=== PATIENT | female | born 1990 | race Caucasian/White ===

== ENCOUNTER 2017-06-28 08:50 | Emergency (ER) | payer OTHER ==
[2017-06-28 08:55] VITALS: BMI 22.9
--- NOTE | 2017-06-28 09:17 | PDOC ---
History of Present Illness - General Chief Complaint: Pain, Acute Stated Complaint: DIARRHEA, VOMITING Time Seen by Provider: 06/28/17 09:01 - History of Present Illness Initial Comments: 06/28/17 09:23 Patient is a 27 y.o. female with a PMH of pericarditis (likely viral) who presents to our ED today c/o 1 day h/o of nausea, 6 episodes of non-bloody emesis, multiple episodes of non-watery diarrhea as well as R sided flank pain that radiates to her RLQ. Patient denies any associated fevers/chills but does c/o generalized malaise. Patient notes her children ages 11 months and 4 years old have recent h/o RSV for which they both received antibiotic therapy. Allergies: Sulfa Surgical: none Social: denies cigarettes, (+) alcohol 3-4 drinks monthly, denies recreational drugs PMD: Dr. Stevie To Past History - Past Medical History Allergies/Adverse Reactions: Allergies Allergy/AdvReac Type Severity Reaction Status Date / Time trimethoprim [From Bactrim] Allergy Severe Rash Verified 06/28/17 08:51 Sulfa (Sulfonamide Allergy Intermediate Rash Verified 06/28/17 08:51 Antibiotics) sulfamethoxazole Allergy Verified 06/28/17 08:51 [From Bactrim] Home Medications: Ambulatory Orders NK [No Known Home Medication] 06/28/17 Anemia: Yes Asthma: No Cancer: No Cardiac Disorders: Yes (PERICARDITIS) CVA: Yes (heart murmur) COPD: No Diabetes: No HTN: No Seizures: No Thyroid Disease: No - Surgical History Cholecystectomy: Yes - Reproductive History (#): 1 Cervical CA: No Dysfunctional Uterine Bleeding: No Ectopic : No Endometrial CA: No Polycystic Ovaries: No Tubal Ligation: No - Immunization History Immunization Up to Date: Yes - Suicide/Smoking/Psychosocial Hx Smoking Status: No Smoking History: Never smoked Have you smoked in the past 12 months: No Number of Cigarettes Smoked Daily: 0 Hx Alcohol Use: No Drug/Substance Use Hx: No Substance Use Type: None Hx Substance Use Treatment: No Review of Systems - Review of Systems Constitutional: Yes: Malaise. No: Chills, Fever, Unexplained wgt Loss Respiratory: No: Shortness of Breath Cardiac (ROS): No: Chest Pain ABD/GI: Yes: Diarrhea, Nausea, Vomiting. No: Constipated : No: Burning, Dysuria Musculoskeletal: Yes: Back Pain All Other Systems: Reviewed and Negative *Physical Exam - Vital Signs Last Vital Signs Temp Pulse Resp BP Pulse Ox 98.5 F 84 19 119/86 98 06/28/17 08:52 06/28/17 08:52 06/28/17 08:52 06/28/17 08:52 06/28/17 08:52 - Physical Exam General Appearance: Yes: Nourished, Thin Neck: positive: Trachea midline, Supple Respiratory/Chest: positive: Lungs Clear. negative: Labored Respiration, Rapid RR Cardiovascular: positive: S1, S2 Gastrointestinal/Abdominal: positive: Tender (Epigastric and LLQ tenderness on deep palpation), Flat, Soft Musculoskeletal: positive: CVA Tenderness (R). negative: CVA Tenderness (L) Extremity: positive: Normal Capillary Refill, Normal Inspection Integumentary: positive: Normal Color, Dry, Warm Neurologic: positive: Fully Oriented, Alert ED Treatment Course - LABORATORY CBC & Chemistry Diagram: 06/28/17 09:00 06/28/17 09:00 Medical Decision Making - Medical Decision Making 06/28/17 10:30 Patient is a 27 y.o. female who presents with N/V/D. On PE patient is hemodynamically stable, benign cardiac exam (no rub) has minimal R CVA tenderness. Low clinical suspicion for nephrolithiasis given patient's non- colicky pain/PE. PLAN: 1. CBC, CMP 2. UA/Urine 3. EKG - past h/o pericarditis Reassess 06/28/17 14:13 EKG shows NSR HR 82 bpm with no deviations, normal intervals, no ST segment changes, no T wave flattening. Moreover no ST elevation w/reciprocal NH depression --> no concerning changes for repeat pericarditis. UA nitrite (-), micro pending. As patient atient's pain resolved with Motrin less likely nephrolithiasis. Patient discharged home with symptomatic care, return precautions and instruction to f/u with PCP. *DC/Admit/Observation/Transfer Diagnosis at time of Disposition: Viral gastritis - Discharge Dispostion Disposition: HOME Condition at time of disposition: Good Admit: No - Referrals Referrals: Stevie To MD [Primary Care Provider] - - Patient Instructions Printed Discharge Instructions: DI for Gastritis Additional Instructions: Please use over the counter Maalox for symptomatic relief. Please follow-up with your primary care doctor in the next 1 week. Please return to the Emergency Department for any new worsening or concerning symptoms including persistent diarrhea, vomiting, chest pain or shortness of breath. - Post Discharge Activity Forms/Work/School Notes: Back to Work
[2017-06-28] MEDS ORDERED: SODIUM CHLORIDE 0.9% 1000 ML INFUS.BAG IV ONE (09:18)
--- NOTE | 2017-06-28 09:36 | PDOC ---
Attending Attestation - Resident Resident Name: Jazzy Nova - ED Attending Attestation I have performed the following: I have examined & evaluated the patient, The case was reviewed & discussed with the resident, I agree w/resident's findings & plan, Exceptions are as noted - HPI HPI: 06/28/17 09:33 27 F with no PMH presents to ER with 2 days of R flank pain, vomiting, and diarrhea. She reports that she started to feel ill a week ago, with runny nose and sore throat. She believes that she caught something from her kids, who are also sick. However, last night she developed R flank pain, associated with several episodes of NBNB emesis and watery brown diarrhea. Denies any focal abdominal pain. Denies F/C. Denies dysuria, denies vaginal discharge/bleeding. - Physicial Exam PE: 06/28/17 09:34 "GENERAL: Awake, alert, and fully oriented, in no acute distress HEAD: No signs of trauma EYES: PERRLA, EOMI, sclera anicteric, conjunctiva clear ENT: Auricles normal inspection, hearing grossly normal, nares patent, oropharynx clear without exudates. Moist mucosa NECK: Nontender, no stepoffs, Normal ROM, supple, no lymphadenopathy, JVD, or masses LUNGS: Breath sounds equal, clear to auscultation bilaterally. No wheezes, and no crackles HEART: Regular rate and rhythm, normal S1 and S2, no murmurs, rubs or gallops ABDOMEN: Soft, +mild epigastric TTP, normoactive bowel sounds. No guarding, no rebound. No masses BACK: + R CVAT EXTREMITIES: Normal range of motion, no edema. No clubbing or cyanosis. No cords, erythema, or tenderness NEUROLOGICAL: Cranial nerves II through XII intact. 5/5 strength and sensation in all extremities, Normal speech, normal gait SKIN: Warm, Dry, normal turgor, no rashes or lesions noted. " - Medical Decision Making 06/28/17 09:35 27 F with R flank pain, N+V+D. Likely viral syndrome/gastroenteritis as pt has known sick contacts. However, given R flank pain, suspect possible pyelo. Pain is not colicky, making nephrolithiasis unlikely. - Labs, UPT, UA - IVF 12/12/17 11:31 labs unremarkable, UPT and UA negative. Pt tolerating PO Repeat exam benign, vitals normal, clinically stable for DC
[2017-06-28 09:44] LABS: BASOPHIL 0.3 % (0-2.0); EOSINOPHIL 0.3 % (0-4.5); MCH 29.2 pg (25.7-33.7); MCHC 33.4 g/dl (32.0-36.0); MEAN CELL VOLUME 87.5 fl (80-96); MEAN PLT VOLUME 9.1 fl (7.5-11.1); NEUTROPHILS 86.3 % (42.8-82.8); PLATELET COUNT 305 K/MM3 (134-434); RDW 12.2 % (11.6-15.6); WHITE BLOOD COUNT 9.6 K/mm3 (4.0-10.0)
[2017-06-28 10:11] LABS: ALBUMIN 3.5 g/dl (3.4-5.0); ALK PHOS 88 U/L (45-117); ANION GAP 8 (8-16); BILIRUBIN,TOTAL 0.3 mg/dL (0.2-1.0); CALCIUM 8.4 mg/dL (8.5-10.1); CO2 22 mmol/L (21-32); CREATININE 0.7 mg/dL (0.55-1.02); GLUCOSE,RANDOM 107 mg/dL (74-106); SGPT/ALT 22 U/L (12-78); TOT PROT 7.5 g/dl (6.4-8.2)
[2017-06-28 10:22] LABS: MAGNESIUM 1.9 mg/dL (1.8-2.4)
[2017-06-28 10:23] LABS: SGOT/AST 20 U/L (15-37)
[2017-06-28] MEDS ORDERED: IBUPROFEN 800 MG/8 ML IJ IVPB ONE ×2 (10:39→10:48)
[2017-06-28 11:00] LABS: URINE APPEARANCE CLEAR; URINE BILIRUBIN NEGATIVE (NEGATIVE); URINE BLOOD NEGATIVE (NEGATIVE); URINE COLOR LTYELLOW; URINE GLUCOSE (UA) NEGATIVE (NEGATIVE); URINE KETONE NEGATIVE (NEGATIVE); URINE NITRITE NEGATIVE (NEGATIVE); URINE PROTEIN NEGATIVE (NEGATIVE); URINE UROBILINOGEN NEGATIVE mg/dL (0.2-1.0)
[2017-06-28] MEDS ORDERED: IBUPROFEN 400 MG TABLET (FP) PO ONE ×2 (11:02→11:31)
[2017-06-28 11:04] LABS: URINE LEUK ESTERASE 1+ (NEGATIVE)
[2017-06-28 11:50] VITALS: BP 123/92; PULSE 83; TEMP 97.9
--- NOTE | 2017-06-28 14:32 | EKG ---
Test Reason : Blood Pressure : / mmHG Vent. Rate : 082 BPM Atrial Rate : 082 BPM P-R Int : 140 ms QRS Dur : 078 ms QT Int : 356 ms P-R-T Axes : 055 064 045 degrees QTc Int : 415 ms NORMAL SINUS RHYTHM POSSIBLE LEFT ATRIAL ENLARGEMENT SEPTAL INFARCT , AGE UNDETERMINED ABNORMAL ECG NO PREVIOUS ECGS AVAILABLE Confirmed by JAMILA PERAZA MD ([id number]) on 06/28/2017 2:32:19 PM Referred By: Confirmed By:JAMILA PERAZA MD
[2017-06-28 18:38] LABS: URINE LEUK ESTERASE NEGATIVE (NEGATIVE)
== END 2017-06-28 11:52 | disposition home or self-care (01) ==
LOC: JER 08:50
PROC: 3E0337Z Introduction of Electrolytic and Water Balance Substance into Peripheral Vein, Percutaneous Approach (ICD-10-PCS; principal; 2017-06-28)
PROC: 3E033GC Introduction of Other Therapeutic Substance into Peripheral Vein, Percutaneous Approach (ICD-10-PCS; 2017-06-28)
DX: A08.4 Viral intestinal infection, unspecified (principal); B97.89 Other viral agents as the cause of diseases classified elsewhere; R01.1 Cardiac murmur, unspecified; I31.9 Disease of pericardium, unspecified
CPT/HCPCS: 36415; 80053; 81003; 81015; 83690; 83735; 84703; 85025; 93005; 93010; 96374; 99283-25

== ENCOUNTER 2018-09-09 19:09 | Emergency (ER) | payer OTHER ==
[2018-09-09 19:17] VITALS: BP 134/90; PULSE 91; TEMP 98.3; BMI 26.5
[2018-09-09] MEDS ORDERED: diphenhydrAMINE HCL 25 MG CAPSULE (FP) PO ONE ×2 (20:21→20:23)
[2018-09-09] MEDS ORDERED: TRIAMCINOLONE ACET 40MG/1ML VIAL IM ONE (20:21)
[2018-09-09] MEDS ORDERED: RANITIDINE HCL 150 MG TABLET (FP) PO ONE (20:21)
[2018-09-09] MEDS ORDERED: RANITIDINE HCL 150 MG TABLET (FP) ONE (20:23)
[2018-09-09] MEDS ORDERED: TRIAMCINOLONE ACET 40MG/1ML VIAL ONE (20:23)
--- NOTE | 2018-09-09 20:23 | PDOC ---
History of Present Illness - General Chief Complaint: Allergic Reaction Stated Complaint: HIVES/SWOLLEN Time Seen by Provider: 09/09/18 19:45 History Source: Patient Exam Limitations: No Limitations - History of Present Illness Initial Comments: 09/09/18 20:22 HISTORY OF PRESENT ILLNESS: 28-year-old female presents emergency department for evaluation of pruritic rash over her entire body starting last night. Patient reports taking Benadryl last night with improvement of symptoms but they returned again this morning. Patient with Benadryl this morning and had improvement with symptoms at that time. Patient states her boyfriend was recently diagnosed with cellulitis and was started on Bactrim. She informed her boyfriend that he should stay away from her as she has an ALLERGY to Bactrim which results in a rash and a cutaneous reaction. Patient stated while she was sleeping she felt a kiss on Her Cheek. When She Opened Her Eyes Her Boyfriend Had Sister. It Was Approximately 45 Minutes after Receiving This Is That the Rash Had Started. No recent travel or sick contacts. PAST MEDICAL HISTORY: Denies past medical history SURGICAL HISTORY: Denies ALLERGIES: Bactrim REVIEW OF SYSTEMS General/Constitutional: Denies fever or chills. Denies weakness, weight change. HEENT: Denies change in vision. Denies ear pain or discharge. Denies sore throat. Cardiovascular: Denies chest pain or shortness of breath. Respiratory: Denies cough, wheezing, or hemoptysis. Gastrointestinal: Denies nausea, vomiting, diarrhea or constipation. Denies rectal bleeding. Genitourinary: Denies dysuria, frequency, or change in urination. Musculoskeletal: Denies joint or muscle swelling or pain. Denies neck or back pain. Skin and breasts: see HPI Neurologic: Denies headache, vertigo, loss of consciousness, or loss of sensation. Psychiatric: Denies depression or anxiety. Endocrine: Denies increased thirst. Denies abnormal weight change. Hematologic/Lymphatic: Denies anemia, easy bleeding, or history of blood clots. Allergic/Immunologic: Denies hives or skin allergy. Denies latex allergy. PHYSICAL EXAM General Appearance: Well-appearing, appropriately dressed. No apparent distress , no intoxication. HEENT: EOMI, PERRLA, normal ENT inspection, normal voice, TMs normal, pharynx normal. No conjunctival pallor. No photophobia, scleral icterus. Neck: Supple. Trachea midline. No tenderness, rigidity, carotid bruit, stridor , lymphadenopathy, or thyromegaly. Respiratory/Chest: Lungs CTAB. No shortness of breath, chest tenderness, respiratory distress, accessory muscle use. No crackles, rales, rhonchi, stridor , wheezing, dullness Cardiovascular: RRR. S1, S2. No JVD, murmur, bradycardia, tachycardia. Vascular Pulses: Dorsalis-Pedis (R): 2+, Dorsalis-Pedis (L): 2+ Gastrointestinal/Abdominal: Normal bowel sounds. Abdomen soft, non-distended. No tenderness or rebound tenderness. No organomegaly, pulsatile mass, guarding, hernia, hepatomegaly, splenomegaly. Lymphatic: No adenopathy, tenderness. Musculoskeletal/Extremities: Normal inspection. FROM of all extremities, normal capillary refill. Pelvis Stable. No CVA tenderness. No tenderness to extremities, pedal edema, swelling, erythema or deformity. Integumentary: Scattered flat erythematous rash present to lower extremities, upper extremities and supraorbital area. Neurologic: strategic partnership manager II-XII intact. Fully oriented, alert. Appropriate mood/affect. Motor strength 5/5. No appreciable EOM palsy, facial droop or sensory deficit. Past History - Past Medical History Allergies/Adverse Reactions: Allergies Allergy/AdvReac Type Severity Reaction Status Date / Time trimethoprim [From Bactrim] Allergy Severe Rash Verified 09/09/18 19:17 Sulfa (Sulfonamide Allergy Intermediate Rash Verified 09/09/18 19:17 Antibiotics) sulfamethoxazole Allergy Verified 09/09/18 19:17 [From Bactrim] Home Medications: Ambulatory Orders Epinephrine [Epipen 2-Jasen] 0.3 mg IJ ASDIR #1 kit 09/09/18 Anemia: Yes Asthma: No Cancer: No Cardiac Disorders: Yes (PERICARDITIS) CVA: Yes (heart murmur) COPD: No Diabetes: No HTN: No Seizures: No Thyroid Disease: No - Surgical History Cholecystectomy: Yes - Reproductive History (#): 1 Cervical CA: No Dysfunctional Uterine Bleeding: No Ectopic : No Endometrial CA: No Polycystic Ovaries: No Tubal Ligation: No - Immunization History Immunization Up to Date: Yes - Suicide/Smoking/Psychosocial Hx Smoking Status: No Smoking History: Never smoked Have you smoked in the past 12 months: No Number of Cigarettes Smoked Daily: 0 Hx Alcohol Use: No Drug/Substance Use Hx: No Substance Use Type: None Hx Substance Use Treatment: No *Physical Exam - Vital Signs Last Vital Signs Temp Pulse Resp BP Pulse Ox 98.3 F 91 H 18 134/90 99 09/09/18 19:15 09/09/18 19:15 09/09/18 19:15 09/09/18 19:15 09/09/18 19:15 Moderate Sedation - Procedure Monitoring Vital Signs: Procedure Monitoring Vital Signs Temperature 98.3 F 09/09/18 19:15 Pulse Rate 91 H 09/09/18 19:15 Respiratory Rate 18 09/09/18 19:15 Blood Pressure 134/90 09/09/18 19:15 O2 Sat by Pulse Oximetry (%) 99 09/09/18 19:15 Medical Decision Making - Medical Decision Making 09/09/18 20:22 A/P: 28-year-old woman with a pruritic rash to her body after exposure to Bactrim Patient with known ALLERGY to Bactrim Oropharynx clear without edema present. Uvula is midline No stridor noted Lungs clear to auscultation bilaterally Patient speaking in long sentences without difficulty Scattered erythematous flat rash presents to bilateral upper extremities and chest Zantac 150 mg orally now Benadryl 50 mg orally now Kenalog 40 mg IM now Reassess 09/09/18 22:04 Patient currently with improvement itching expresses desire to home. As explained to the patient that she should return to emergency department for any worsening symptoms and she should avoid her boyfriend until he finishes his Bactrim course. Discharge home *DC/Admit/Observation/Transfer Diagnosis at time of Disposition: Allergic reaction caused by a drug Qualifiers: Encounter type: initial encounter Qualified Code(s): T78.40XA - Allergy, unspecified, initial encounter - Discharge Dispostion Disposition: HOME Condition at time of disposition: Stable Decision to Admit order: No - Prescriptions Prescriptions: Epinephrine [Epipen 2-Jasen] 0.3 mg IJ ASDIR #1 kit - Referrals - Patient Instructions Printed Discharge Instructions: DI for Adverse Drug Reaction -- Allergic Additional Instructions: Avoid the boyfriend until he completes his course of Bactrim. Keep Benadryl and Pepcid in your purse and review began to experience any symptoms take them immediately and come to the emergency department. You have been given a prescription for an EpiPen. He began to experience symptoms of the reaction again give epinephrine to yourself and come to the emergency department. Return to the emergency department for any concerns. - Post Discharge Activity
== END 2018-09-09 22:11 | disposition home or self-care (01) ==
LOC: JERFT 19:09
PROC: 3E0233Z Introduction of Anti-inflammatory into Muscle, Percutaneous Approach (ICD-10-PCS; principal; 2018-09-09)
DX: L50.6 Contact urticaria (principal); T37.0X5A Adverse effect of sulfonamides, initial encounter; Y92.89 Other specified places as the place of occurrence of the external cause; Z88.2 Allergy status to sulfonamides
CPT/HCPCS: 96372; 99281-25

== ENCOUNTER 2020-09-16 00:45 | Emergency (ER) | payer OTHER ==
[2020-09-16 01:31] VITALS: BP 115/75; PULSE 87; TEMP 98.2; BMI 31.3
[2020-09-16] MEDS ORDERED: ACETAMINOPHEN 1000 MG/100 ML VIAL (NON FORMULARY) IVPB ONE (02:18)
[2020-09-16] MEDS ORDERED: METOCLOPRAMIDE HCL INJECTION 10 MG/2 ML VIAL IVPUSH ONE (02:18)
[2020-09-16] MEDS ORDERED: DEXAMETHASONE SOD PHOSPHATE 10 MG/1 ML VIAL IVPUSH ONE (02:19)
[2020-09-16] MEDS ORDERED: DEXAMETHASONE SOD PHOSPHATE 10 MG/1 ML VIAL ONE (02:28)
[2020-09-16] MEDS ORDERED: ACETAMINOPHEN INJECTION 100 ML IVPB ONE (02:28)
[2020-09-16] MEDS ORDERED: METOCLOPRAMIDE HCL INJECTION 10 MG/2 ML VIAL ONE (02:28)
[2020-09-16] MEDS ORDERED: SODIUM CHLORIDE 1,000 ML IV SCH (02:30)
== END 2020-09-16 05:52 | disposition home or self-care (01) ==
LOC: JER 00:45
PROC: 3E0333Z Introduction of Anti-inflammatory into Peripheral Vein, Percutaneous Approach (ICD-10-PCS; principal; 2020-09-16)
PROC: 3E033GC Introduction of Other Therapeutic Substance into Peripheral Vein, Percutaneous Approach (ICD-10-PCS; 2020-09-16)
PROC: 3E033GC Introduction of Other Therapeutic Substance into Peripheral Vein, Percutaneous Approach (ICD-10-PCS; 2020-09-16)
PROC: 3E033GC Introduction of Other Therapeutic Substance into Peripheral Vein, Percutaneous Approach (ICD-10-PCS; 2020-09-16)
DX: R51.9 Headache, unspecified (principal); M62.838 Other muscle spasm
CPT/HCPCS: 70450-TC; 84703; 99284-25; J0131; J1100

== ENCOUNTER 2021-01-18 15:42 | Emergency (ER) | payer OTHER ==
[2021-01-18 16:06] VITALS: BP 130/84; PULSE 87; TEMP 98.5; BMI 28.6
[2021-01-18] MEDS ORDERED: ACETAMINOPHEN 325 MG TABLET (FP) PO ONE (17:08)
[2021-01-18 17:14] LABS: EOS % 1.6 % (0-4.5); HEMATOCRIT 39.9 % (32.4-45.2); HEMOGLOBIN 13.9 GM/dL (10.7-15.3); LYMPH % 24.1 % (8-40); MCH 30.4 pg (25.7-33.7); MCHC 34.8 g/dl (32.0-36.0); MEAN CELL VOLUME 87.3 fl (80-96); MEAN PLT VOLUME 8.5 fl (7.5-11.1); MONO % 9.8 % (3.8-10.2); NEUT % 63.5 % (42.8-82.8); PLATELET COUNT 327 10^3/uL (134-434); RBC 4.57 M/mm3 (3.60-5.2); RDW 12.3 % (11.6-15.6); WHITE BLOOD COUNT 8.9 K/mm3 (4.0-10.0)
[2021-01-18] MEDS ORDERED: ACETAMINOPHEN 325 MG TABLET (FP) ONE (17:32)
[2021-01-18 17:34] LABS: CHLORIDE 104 mmol/L (98-107); INR 0.97 (0.83-1.09); PROTHROMBIN TIME (PATIENT) 11.8 SEC (9.7-13.0); SODIUM 140 mmol/L (136-145)
[2021-01-18 17:36] LABS: ACTIVATED PTT 31.9 SECONDS (25.2-36.5); CALCIUM 9.1 mg/dL (8.5-10.1)
[2021-01-18 17:37] LABS: ANION GAP 8 MMOL/L (8-16); BLOOD UREA NITROGEN 13.9 mg/dL (7-18); CO2 28 mmol/L (21-32); GLUCOSE,RANDOM 88 mg/dL (74-106)
[2021-01-18 17:40] LABS: SGOT/AST 28 U/L (15-37); SGPT/ALT 65 U/L (13-61)
[2021-01-18 17:42] LABS: BILIRUBIN,TOTAL 0.2 mg/dL (0.2-1); TOT PROT 7.7 g/dl (6.4-8.2)
[2021-01-18 17:43] LABS: ALK PHOS 101 U/L (45-117)
[2021-01-18 17:45] LABS: CREATININE 0.7 mg/dL (0.55-1.3)
[2021-01-18] MEDS ORDERED: RHO(D) IMMUNE GLOBULIN 1,500 UNIT DISP.SYRIN IM ONE (18:41)
== END 2021-01-18 19:46 | disposition home or self-care (01) ==
LOC: JER 15:42
PROC: 3E0234Z Introduction of Serum, Toxoid and Vaccine into Muscle, Percutaneous Approach (ICD-10-PCS; principal; 2021-01-18)
DX: O03.9 Complete or unspecified spontaneous abortion without complication (principal)
CPT/HCPCS: 36415; 76817-TC; 80053; 84702; 85025; 85610; 85730; 86850; 86900; 86901; 86999; 93005; 93010; 99283-25; J1561